=== PATIENT | female | born 1985 | race Caucasian/White ===

== ENCOUNTER 2017-12-30 07:46 | Day surgery (SDC) | payer MEDICAID ==
[2017-12-30] MEDS ORDERED: FENTAnyl 50 MCG/ML VIAL ×2 (08:36→10:48)
[2017-12-30] MEDS ORDERED: LIDOCAINE 2% (SDV) 5 ML INJ (08:36)
[2017-12-30] MEDS ORDERED: PROPOFOL 20 ML (08:37)
[2017-12-30] MEDS ORDERED: CEFAZOLIN 1 GM INJ (08:37)
[2017-12-30] MEDS ORDERED: METOCLOPRAMIDE 10 MG INJ (08:37)
[2017-12-30] MEDS ORDERED: ONDANSETRON 4 MG INJ (08:37)
[2017-12-30] MEDS ORDERED: KETOROLAC 30 MG INJ (08:38)
[2017-12-30 09:05] LABS: ADD MAN DIFF? NO
[2017-12-30 09:06] LABS: WHITE BLOOD COUNT 8.5 10^3/ul (4.8-10.8)
[2017-12-30 09:06] LABS: ABNORMAL IP MESSAGE 1; BASOPHIL # 0.1 10^3/ul (0.0-0.1); BASOPHILS % 0.9 % (0.0-2.0); EOSINOPHILS # 0.9 10^3/ul (0.0-0.5); HEMATOCRIT 39.4 % (37.0-47.0); HEMOGLOBIN 13.2 g/dl (12.0-16.0); LYMPHOCYTES # 2.6 10^3/ul (0.8-2.9); LYMPHOCYTES % 30.1 % (15.0-51.0); MEAN CORPUSCULAR HEMOGLOBIN 26.2 pg (29.0-33.0); MEAN CORPUSCULAR HGB CONC 33.5 g/dl (32.0-37.0); MEAN CORPUSCULAR VOLUME 78.2 fl (82.0-101.0); MEAN PLATELET VOLUME 10.9 fl (7.4-10.4); MONOCYTE # 0.4 10^3/ul (0.3-0.9); MONOCYTES % 4.6 % (0.0-11.0); NEUTROPHIL # 4.6 10^3/ul (1.6-7.5); NEUTROPHILS % 54.3 % (39.0-77.0); PLATELET COUNT 306 10^3/UL (140-415); RED BLOOD COUNT 5.04 10^6/ul (4.20-5.40); RED CELL DISTRIBUTION WIDTH 15.3 % (11.5-14.5)
[2017-12-30 09:08] LABS: POSITIVE DIFF @See below
[2017-12-30] MEDS ORDERED: KETOROLAC 30 MG INJ IV (11:00)
[2017-12-30] MEDS ORDERED: ONDANSETRON 4 MG INJ IV (11:00)
[2017-12-30] MEDS: FENTAnyl 50 MCG/ML VIAL IV (11:17)
== END 2017-12-30 12:30 | disposition home or self-care (01) ==
LOC: SDS 07:46
DX: Z30.2 Encounter for sterilization (principal)
CPT/HCPCS: 58565; 85025; 86900; 86901